=== PATIENT | female | born 1995 | race Caucasian/White ===

== ENCOUNTER → 2017-09-05 | Outpatient (CLI) | payer BC ==
--- NOTE | 2017-09-05 18:44 | DIAGNOSTIC IMAGING REPORT ---
L FOOT MIN 3 VIEWS CLINICAL HISTORY: LEFT FOOT AND LATERAL ANKLE PAIN COMPARISON: None FINDINGS: Tarsometatarsal joints are intact. Alignment of the left foot is anatomic. No fracture or osseous lesion. There are no erosions. The joint spaces are preserved. IMPRESSION: Unremarkable left radiographs. Electronically signed by: Moose Mckeon M.D. 09/05/2017 6:42 PM Dictated Date/Time: 09/05/2017 6:39 PM
== END | disposition home or self-care (01) ==
LOC: C.RDSM 18:44
PROVIDERS: ATTEND Internal Medicine
DX: M79.672 Pain in left foot (principal)